=== PATIENT | female | born 1970 | race Caucasian/White ===

== ENCOUNTER 2017-03-23 09:23 | Emergency (ER) | payer OTHER, SELFPAY ==
[2017-03-23 09:38] VITALS: BP 136/84; PULSE 83; RESP 18; TEMP 36.8; O2SAT 98; BMI 36.3
--- NOTE | 2017-03-23 09:53 | HMH.EDUTC ---
[facility] [place] Clinical Impression: Upper respiratory infection Qualifiers: URI type: acute pharyngitis Pharyngitis/tonsillitis etiology: unspecified etiology Qualified Code(s): J02.9 - Acute pharyngitis, unspecified Disposition: Home, Self-Care Condition on Discharge: Good Instructions: Sore Throat, DI for Ear Pain-Adult Additional Instructions: * Monitor Temp. Tylenol and/or Ibuprofen as needed. ER if fever is no less than 101 despite alternating Tylenol and Ibuprofen * Encourage fluids, water, Gatorade, powerade, pedialyte if infant/toddler/or child * Warm salt water gargles for throat irritation *Warm fluids *Sore throat lozenges *Sleep elevated *humidifier or vaporizer Lots of rest Increase fluids, water, Gatorade, powerade *Your throat swab was sent to lab for culture. Those results area typically sent to your primary care physician. Be sure to follow up in 2-3 days if no improvement so they can review those results and treat if necessary If you dont have primary care I recommend you get one, but in the mean time you will have to return to a walk in clinic Follow up IMMEDIATELY for new or worsening of symptoms OR no noticeable improvement over the next 48-72 hours. 911 immediately for any life threatening symptoms such as chest pain or difficulty breathing Forms: Work/School Release Time of Disposition: 09:58 Medical Decision Making - Medical Records Medical records reviewed: Yes: I reviewed the patient's medical records. Vital Signs: 03/23/17 09:38 Temperature 98.2 F Temperature Source Temporal Artery Scan Pulse Rate [Right] 83 Respiratory Rate 18 Blood Pressure [Right Arm] 136/84 Blood Pressure Mean [Right Arm] 101 Blood Pressure Source [Right Arm] Automatic Cuff Blood Pressure Position [Right Arm] Sitting 02 Sat by Pulse Oximetry 98 Oxygen Delivery Method Room Air - Lab Data Lab Results 03/23/17 10:05: Influenza Type A Ag Negative, Influenza Type B Ag Negative, Strep Scn Rapid Clinic Negative Orders (Tests/Meds): ED MEDICATIONS Discontinued Medications Generic Name Dose Route Start Last Admin Trade Name Freq PRN Reason Stop Dose Admin Ceftriaxone Sodium 1 gm 03/23/17 09:57 03/23/17 10:11 Rocephin 1gm Vial IM 03/23/17 09:58 1 gm ONCE ONE Administration Lidocaine HCl 0 ml 03/23/17 09:57 Lidocaine 1% 10ml Mdv IM 03/23/17 09:58 ONCE ONE Methylprednisolone Sodium Succinate 125 mg 03/23/17 09:57 03/23/17 10:12 Solu-Medrol 125mg/2ml Vial IM 03/23/17 09:58 125 mg ONCE ONE Administration ORDERS Category Date Time Status Strep Screen Confirmation Stat Micro 03/23/17 10:05 Received - Delvis Inquiry Pt receiving controlled substance: No Delvis was queried for this patient: No [facility] [place] - General Stated complaint: Throat and ear pain Mode of Arrival: Ambulatory Source of Information: Patient Limitations: No Limitations Description of Symptoms (Recalled from Triage Doc. by RN): SORE THROAT, EAR PAIN Sunday Symptoms (Recalled from RN notes): Yes Resp Symptoms (Recalled from RN notes): No Skin Symptoms (Recalled from RN notes): No MS Symptoms (Recalled from RN notes): No Functional Status (Recalled from RN notes): N - History of Present Illness Provider Complaint: Patient state that she has been having sore throat and pain in her right ear State that pain in ear worsens when she swallows State that throat feels raw and irritated and has continued to get worse over the last couple of days - Related Data Home Medications Medication Instructions Recorded Confirmed Sertraline HCl [Zoloft 100mg 100 mg PO DAILY 03/23/17 03/23/17 tablet] Allergies Allergy/AdvReac Type Severity Reaction Status Date / Time lisinopril [LISINOPRIL] Allergy Mild Verified 03/23/17 09:42 morphine Allergy Unknown MAKES Verified 03/23/17 09:42 SKIN CRAWL - Worker's Comp Is this a Worker's Comp case?: No [facility] History I h
--- NOTE | 2017-03-23 09:56 | ED_ITS ---
[facility] [place] Clinical Impression: Upper respiratory infection Qualifiers: URI type: acute pharyngitis Pharyngitis/tonsillitis etiology: unspecified etiology Qualified Code(s): J02.9 - Acute pharyngitis, unspecified Disposition: Home, Self-Care Condition on Discharge: Good Instructions: Sore Throat, DI for Ear Pain-Adult Additional Instructions: * Monitor Temp. Tylenol and/or Ibuprofen as needed. ER if fever is no less than 101 despite alternating Tylenol and Ibuprofen * Encourage fluids, water, Gatorade, powerade, pedialyte if infant/toddler/or child * Warm salt water gargles for throat irritation *Warm fluids *Sore throat lozenges *Sleep elevated *humidifier or vaporizer Lots of rest Increase fluids, water, Gatorade, powerade *Your throat swab was sent to lab for culture. Those results area typically sent to your primary care physician. Be sure to follow up in 2-3 days if no improvement so they can review those results and treat if necessary If you don? t have primary care I recommend you get one, but in the mean time you will have to return to a walk in clinic Follow up IMMEDIATELY for new or worsening of symptoms OR no noticeable improvement over the next 48-72 hours. 911 immediately for any life threatening symptoms such as chest pain or difficulty breathing Forms: Work/School Release Time of Disposition: 09:58 Medical Decision Making - Medical Records Medical records reviewed: Yes: I reviewed the patient's medical records. Vital Signs: 03/23/17 09:38 Temperature 98.2 F Temperature Source Temporal Artery Scan Pulse Rate [Right] 83 Respiratory Rate 18 Blood Pressure [Right Arm] 136/84 Blood Pressure Mean [Right Arm] 101 Blood Pressure Source [Right Arm] Automatic Cuff Blood Pressure Position [Right Arm] Sitting 02 Sat by Pulse Oximetry 98 Oxygen Delivery Method Room Air - Lab Data Lab Results 03/23/17 10:05: Influenza Type A Ag Negative, Influenza Type B Ag Negative, Strep Scn Rapid Clinic Negative Orders (Tests/Meds): ED MEDICATIONS Discontinued Medications Generic Name Dose Route Start Last Admin Trade Name Freq PRN Reason Stop Dose Admin Ceftriaxone Sodium 1 gm 03/23/17 09:57 03/23/17 10:11 Rocephin 1gm Vial IM 03/23/17 09:58 1 gm ONCE ONE Administration Lidocaine HCl 0 ml 03/23/17 09:57 Lidocaine 1% 10ml Mdv IM 03/23/17 09:58 ONCE ONE Methylprednisolone Sodium Succinate 125 mg 03/23/17 09:57 03/23/17 10:12 Solu-Medrol 125mg/2ml Vial IM 03/23/17 09:58 125 mg ONCE ONE Administration ORDERS Category Date Time Status Strep Screen Confirmation Stat Micro 03/23/17 10:05 Received - Delvis Inquiry Pt receiving controlled substance: No Delvis was queried for this patient: No [facility] [place] - General Stated complaint: Throat and ear pain Mode of Arrival: Ambulatory Source of Information: Patient Limitations: No Limitations Description of Symptoms (Recalled from Triage Doc. by RN): SORE THROAT, EAR PAIN Sunday Symptoms (Recalled from RN notes): Yes Resp Symptoms (Recalled from RN notes): No Skin Symptoms (Recalled from RN notes): No MS Symptoms (Recalled from RN notes): No Functional Status (Recalled from RN notes): N - History of Present Illness Provider Complaint: Patient state that she has bee
[2017-03-23 10:06] LABS: UTC Influenza A Antigen Negative (Negative); UTC Influenza B Antigen Negative (Negative); UTC Strep Screen (Rapid) Negative (Negative)
== END 2017-03-23 10:31 | disposition home or self-care (01) ==
PROVIDERS: Emergency Provider Nurse Practitioner; Family Provider Emergency Medicine
DX: J02.9 Acute pharyngitis, unspecified (principal)
CPT/HCPCS: 87804; 87880; 96372; 99201

== ENCOUNTER 2017-04-04 08:59 | Emergency (ER) | payer OTHER, SELFPAY ==
[2017-04-04 09:13] VITALS: BP 131/56; PULSE 77; RESP 20; TEMP 37; O2SAT 96; BMI 38.7
--- NOTE | 2017-04-04 09:20 | HMH.EDUTC ---
[facility] – [place] Disposition Clinical Impression: Viral upper respiratory illness Eustachian tube dysfunction Qualifiers: Laterality: left Qualified Code(s): H69.82 - Other specified disorders of Eustachian tube, left ear Disposition: Home, Self-Care Condition on Discharge: Good Instructions: DI for Viral Upper Respiratory Infection -- Adult, DI for Eustachian Tube Dysfunction-Adult Additional Instructions: * No sign of bacterial infection. Likely viral. Virus can take 7-14 days to run their course * Monitor Temp. Follow up if fever develops * Encourage fluids, water, gatorade, powerade, pedialyte if infant/toddler/child * warm salt water gargles * warm fluids * sore throat lozenges * sleep elevated * humidifier/vaporizer * flonase 2 sprays each nostril daily but may take 2-3 days to notice improvement with it. * Bromfed may cause drowsiness. Know how it effects you (or your child) before driving, caring for small children, or sending your child to school. No other antihistamines/allergy medications while taking bromfed. * Start steroid today. Helps with inflammation therefore, cough Eustachian tube. Follow directions on package. Rvwd side effects. Pt reports they have taken them before. * * Per hospital policy, Your throat swab was sent for culture. Those results are typically sent to your primary care. Although I suspect it will be negative, be sure to follow up in 2-3 days if no improvement so they can review those results and treat if necessary. If you don't have primary care, I recommend you get one but in the mean time, you will have to return to a walk in clinic. See primary care or return here immediately for new or worsening symptoms or if still no obvious improvement starting within the next 3-4 days. Prescriptions: Brompheniramine/Pseudoephed/Dm [Bromfed DM Cough Syrup 5mL] 10 ml PO QID #240 ml Fluticasone Propionate [Flonase 50mcg nasal spray 16gm] 2 spr NS DAILY #1 bottle methylPREDNISolone [Medrol] 4 mg PO DIRECTED #1 tab.ds.pk Time of Disposition: 09:32 Medical Decision Making Vital Signs: 04/04/17 09:13 Temperature 98.6 F Temperature Source Temporal Artery Scan Pulse Rate [Right Brachial] 77 Respiratory Rate 20 Blood Pressure [Right Arm] 131/56 Blood Pressure Mean [Right Arm] 81 Blood Pressure Source [Right Arm] Automatic Cuff Blood Pressure Position [Right Arm] Sitting 02 Sat by Pulse Oximetry 96 Oxygen Delivery Method Room Air - Lab Data Lab results reviewed: Yes: I reviewed the patient's lab results. Lab Results 04/04/17 09:30: Strep Scn Rapid Clinic Negative Orders (Tests/Meds): ORDERS Category Date Time Status Strep Screen Confirmation Stat Micro 04/04/17 09:30 Received - Delvis Inquiry Pt receiving controlled substance: No [facility] [place] HPI - General Stated complaint: sore throat ear ache cough Time Seen by Provider: 04/04/17 09:15 Mode of Arrival: Ambulatory Source of Information: Patient Limitations: No Limitations Description of Symptoms (Recalled from Triage Doc. by RN): C/O bilateral ear pain and sore throat HEENT Symptoms (Recalled from RN notes): Yes (Bilateral ear pain and sore throat) Resp Symptoms (Recalled from RN notes): No Skin Symptoms (Recalled from RN notes): No MS Symptoms (Recalled from RN notes): No Functional Status (Recalled from RN notes): n/a - History of Present Illness Provider Complaint: c/o persistant ear pain and sore throat. Now Cough as well. Was seen on 03/23/17 for same symptoms minus cough. Dx pharyngitis. Given solumedrol and rocephin injections. Has been taking tylenol PRN. Throat primarily on left side. Throat and ear pain worse with swallowing, yawning, sneezing. Works in a hospital. No sick contacts at home. Wants rechecked for strep although given rocephin injection and strep cx from 03/23 negative. - Related Data Home Medications Medication Instructions Recorded Confirmed Sertraline HCl [Zoloft 100mg 100 mg PO DAILY 03/23/17
--- NOTE | 2017-04-04 09:25 | ED_ITS ---
[facility] – [place] Disposition Clinical Impression: Viral upper respiratory illness Eustachian tube dysfunction Qualifiers: Laterality: left Qualified Code(s): H69.82 - Other specified disorders of Eustachian tube, left ear Disposition: Home, Self-Care Condition on Discharge: Good Instructions: DI for Viral Upper Respiratory Infection -- Adult, DI for Eustachian Tube Dysfunction-Adult Additional Instructions: * No sign of bacterial infection. Likely viral. Virus can take 7-14 days to run their course * Monitor Temp. Follow up if fever develops * Encourage fluids, water, gatorade, powerade, pedialyte if /toddler/ child * warm salt water gargles * warm fluids * sore throat lozenges * sleep elevated * humidifier/vaporizer * flonase 2 sprays each nostril daily but may take 2-3 days to notice improvement with it. * Bromfed may cause drowsiness. Know how it effects you (or your child) before driving, caring for small children, or sending your child to school. No other antihistamines/allergy medications while taking bromfed. * Start steroid today. Helps with inflammation therefore, cough Eustachian tube. Follow directions on package. Rvwd side effects. Pt reports they have taken them before. * * Per hospital policy, Your throat swab was sent for culture. Those results are typically sent to your primary care. Although I suspect it will be negative , be sure to follow up in 2-3 days if no improvement so they can review those results and treat if necessary. If you don't have primary care, I recommend you get one but in the mean time, you will have to return to a walk in clinic. See primary care or return here immediately for new or worsening symptoms or if still no obvious improvement starting within the next 3-4 days. Prescriptions: Brompheniramine/Pseudoephed/Dm [Bromfed DM Cough Syrup 5mL] 10 ml PO QID #240 ml Fluticasone Propionate [Flonase 50mcg nasal spray 16gm] 2 spr NS DAILY #1 bottle methylPREDNISolone [Medrol] 4 mg PO DIRECTED #1 tab.ds.pk Time of Disposition: 09:32 Medical Decision Making Vital Signs: 04/04/17 09:13 Temperature 98.6 F Temperature Source Temporal Artery Scan Pulse Rate [Right Brachial] 77 Respiratory Rate 20 Blood Pressure [Right Arm] 131/56 Blood Pressure Mean [Right Arm] 81 Blood Pressure Source [Right Arm] Automatic Cuff Blood Pressure Position [Right Arm] Sitting 02 Sat by Pulse Oximetry 96 Oxygen Delivery Method Room Air - Lab Data Lab results reviewed: Yes: I reviewed the patient's lab results. Lab Results 04/04/17 09:30: Strep Scn Rapid Clinic Negative Orders (Tests/Meds): ORDERS Category Date Time Status Strep Screen Confirmation Stat Micro 04/04/17 09:30 Received - Delvis Inquiry Pt receiving controlled substance: No [facility] [place] HPI - General Stated complaint: sore throat ear ache cough Time Seen by Provider: 04/04/17 09:15 Mode of Arrival: Ambulatory Source of Information: Patient Limitations: No Limitations Description of Symptoms (Recalled from Triage Doc. by RN): C/O bilateral ear pain and sore throat HEENT Symptoms (Recalled from RN notes): Yes (Bilateral ear pain and sore throat ) Resp Symptoms (Recalled from RN notes): No Skin Symptoms (Recalled from RN notes): No MS Symptoms (Recalled from RN notes): No Functional Status (Recalled from RN notes): n/a - History of Present Illness Provider Complaint: c/o persistant ear pain and sore throat. Now Cough as w
[2017-04-04 09:30] LABS: UTC Strep Screen (Rapid) Negative (Negative)
[2017-04-04 09:32] VITALS: BP 133/78; PULSE 76; RESP 20; TEMP 36.6; O2SAT 97
== END 2017-04-04 09:33 | disposition home or self-care (01) ==
PROVIDERS: Emergency Provider Nurse Practitioner Family; Family Provider Emergency Medicine
DX: J06.9 Acute upper respiratory infection, unspecified (principal); H69.82 Other specified disorders of Eustachian tube, left ear; I10 Essential (primary) hypertension; K21.9 Gastro-esophageal reflux disease without esophagitis; F32.9 Major depressive disorder, single episode, unspecified; Z88.6 Allergy status to analgesic agent
CPT/HCPCS: 87880; 99201

== ENCOUNTER → 2017-06-26 07:04 | Outpatient (CLI) | payer OTHER, SELFPAY ==
[2017-06-26 13:39] LABS: Basophils % 0.9 % (0.1-2.0); Eosinophils # 0.1 K/mm3 (0.0-0.4); Eosinophils % 1.5 % (0.1-12.0); Hematocrit 42.2 % (37.0-47.0); Hemoglobin 13.7 g/dL (12.2-16.2); Lymphocytes # 1.5 K/mm3 (0.7-4.5); Lymphocytes % 40.4 K/mm3 (10-50); Mean Corpuscular HGB Conc 32.5 g/dL (31.8-35.4); Mean Corpuscular Hemoglobin 28.4 pg (27.0-31.2); Mean Corpuscular Volume 87.3 fl (81-99); Mean Platelet Volume 7.7 fl (7.4-10.4); Monocytes # 0.2 K/mm3 (0.1-1.0); Monocytes % 4.7 % (1.7-9.3); Neutrophils # 1.9 K/mm3 (1.8-7.8); Neutrophils % 52.5 % (37.0-80.0); Platelet Count 264 K/mm3 (142-424); Red Blood Count 4.83 M/mm3 (4.20-5.40); Red Cell Distribution Width 12.6 % (11.5-17.5); White Blood Count 3.6 K/mm3 (4.8-10.8)
[2017-06-26 14:02] LABS: Alanine Aminotransferase 32 U/L (12-78); Albumin Level 3.5 gm/dL (3.4-5.0); Albumin/Globulin Ratio 1.1 (1.1-1.8); Alkaline Phosphatase 103 U/L (46-116); Amylase 22 U/L (25-125); Anion Gap 9.9 mEq/L (5-15); Aspartate Amino Transferase 19 U/L (15-37); Bilirubin,Total 0.3 mg/dL (0.2-1.0); Blood Urea Nitrogen 10 mg/dL (7-18); Calcium 8.8 mg/dL (8.5-10.1); Carbon Dioxide 31 mmol/L (21.0-32.0); Chloride 105 mmol/L (98-107); Creatinine,Serum 0.59 mg/dL (0.55-1.02); Estimated Glomerular Filt Rate 110 ml/min (>60); GFR (African American) 133 ML/MIN (>60); Globulin 3.3 gm/dl (1.3-3.2); Glucose 100 mg/dL (74-106); Lipase 71 u/L (73-393); Potassium 3.9 mmoL/L (3.5-5.1); Sodium 142 mmol/L (136-145); T4 (Thyroxine) 11.3 ug/dl (4.7-13.3); Thyroid Stimulating Hormone 3.23 uIU/ml (0.358-3.740); Total Protein,Serum 6.8 gm/dL (6.4-8.2)
== END ==
PROVIDERS: PCP Nurse Practitioner Family; Visit Provider Nurse Practitioner Family
DX: R10.11 Right upper quadrant pain (principal); R11.0 Nausea
CPT/HCPCS: 36415; 80053; 82150; 83690; 84436; 84443; 85025

== ENCOUNTER → 2017-07-06 13:00 | Outpatient (CLI) | payer OTHER, SELFPAY ==
--- NOTE | 2017-07-06 13:05 | MM_ITS ---
MM Dig screening mamm BI w/CAD ORDERING PHYSICIAN : Markell Manzanares MD PATIENT AGE: 47 years GENDER: Female June 2016, September 2014, March 2012. INDICATION: Routine screening. Takes estrogen.. No new complaints. Family history. Noncontributory. TECHNIQUE: Standard CC and MLO images were obtained. Added axillary cc view left breast R2 CAD reviewed. SCREENING MAMMOGRAM-FINDINGS : Mild to moderate residual fibroglandular elements. No significant new findings. No dominant mass nor suspicious calcifications in either breast. RIGHT BREAST:Stable with no new areas of concern. Follow-up one year on right LEFT BREAS. No areas of significant concern. No significant change since 2014. Follow-up in one year IMPRESSION: No significant new areas of concern in either breast Overall stable mammogram. Follow-up in one year recommended BI-RADS Category: 1 Negative RECOMMENDED FOLLOW-UP: 1YR - 1 YEAR FOLLOW-UP (A letter has been sent to the patient regarding results of the study.) . complete
== END ==
PROVIDERS: PCP Emergency Medicine; Visit Provider Nurse Practitioner Obstetrics & Gynecology
DX: Z12.31 Encounter for screening mammogram for malignant neoplasm of breast (principal)
CPT/HCPCS: 77067

== ENCOUNTER → 2017-10-31 15:42 | Outpatient (CLI) | payer OTHER, SELFPAY ==
[2017-10-31 18:59] LABS: Basophils % 0.6 % (0.1-2.0); Eosinophils # 0.3 K/mm3 (0.0-0.4); Eosinophils % 5.8 % (0.1-12.0); Hematocrit 43.5 % (37.0-47.0); Hemoglobin 14.1 g/dL (12.2-16.2); Lymphocytes # 1.7 K/mm3 (0.7-4.5); Lymphocytes % 29.2 K/mm3 (10-50); Mean Corpuscular HGB Conc 32.5 g/dL (31.8-35.4); Mean Corpuscular Hemoglobin 27.9 pg (27.0-31.2); Mean Corpuscular Volume 85.8 fl (81-99); Mean Platelet Volume 7.1 fl (7.4-10.4); Monocytes # 0.3 K/mm3 (0.1-1.0); Monocytes % 5.5 % (1.7-9.3); Neutrophils # 3.5 K/mm3 (1.8-7.8); Neutrophils % 58.9 % (37.0-80.0); Platelet Count 324 K/mm3 (142-424); Red Blood Count 5.07 M/mm3 (4.20-5.40); Red Cell Distribution Width 13.6 % (11.5-17.5); White Blood Count 5.9 K/mm3 (4.8-10.8)
[2017-10-31 21:38] LABS: Alanine Aminotransferase 46 U/L (12-78); Albumin/Globulin Ratio 1.1 (1.1-1.8); Alkaline Phosphatase 116 U/L (46-116); Anion Gap 12.8 mEq/L (5-15); Aspartate Amino Transferase 19 U/L (15-37); Bilirubin,Total 0.3 mg/dL (0.2-1.0); Blood Urea Nitrogen 14 mg/dL (7-18); Calcium 9.3 mg/dL (8.5-10.1); Carbon Dioxide 29 mmol/L (21.0-32.0); Chloride 103 mmol/L (98-107); Creatinine,Serum 0.79 mg/dL (0.55-1.02); Estimated Glomerular Filt Rate 78 ml/min (>60); GFR (African American) 95 ML/MIN (>60); Globulin 3.6 gm/dl (1.3-3.2); Glucose 100 mg/dL (74-106); Potassium 3.8 mmoL/L (3.5-5.1); Sodium 141 mmol/L (136-145); Thyroid Stimulating Hormone 2.05 uIU/ml (0.358-3.740); Total Protein,Serum 7.6 gm/dL (6.4-8.2)
[2017-11-02 19:04] LABS: Vitamin B12 618 pg/mL (232-1245); Vitamin D 25 Hydroxy 31.4 ng/mL (30.0-100.0)
== END ==
PROVIDERS: Visit Provider Nurse Practitioner Family
DX: R53.83 Other fatigue (principal)
CPT/HCPCS: 80053; 82607; 82652; 84436; 84443; 85025